=== PATIENT | female | born 1980 | race African-American/Black ===

== ENCOUNTER 2023-02-28 18:00 | Inpatient (IN) | payer OTHER ==
[~2023-02-28 18:00] MED LIST: Bupivacaine 0.25% HCL 30 ML VIAL ONE
[2023-02-28 18:18] VITALS: BMI 31.3
[2023-02-28] MEDS ORDERED: Ondansetron PF 4 MG/2 ML Vial IVP PRN (18:47)
[2023-02-28] MEDS ORDERED: Methylergonovine 0.2 MG/ML VIAL IM PRN (18:47)
[2023-02-28] MEDS ORDERED: fentaNYL 50 mcg/mL 1 mL Vial SLOW IVP PRN (18:47)
[2023-02-28] MEDS ORDERED: Tranexamic Acid 1,000 MG/10 ML VIAL IVP PRN (18:47)
[2023-02-28] MEDS ORDERED: Misoprostol 200 MCG TAB PR PRN (18:47)
[2023-02-28] MEDS ORDERED: hydrALAZINE 20 MG/ML VIAL SLOW IVP PRN (18:47)
[2023-02-28] MEDS ORDERED: Acetaminophen 500 MG TAB PO PRN (18:47)
[2023-02-28] MEDS ORDERED: Promethazine HCl 25 MG/ML VIAL IM PRN (18:47)
[2023-02-28] MEDS ORDERED: Carboprost 250 MCG/ML AMP IM PRN (18:47)
[2023-02-28] MEDS ORDERED: Oxytocin 30 units/NS 500 ML 500 ML IV SCH ×3 (19:00→19:30)
[2023-02-28 19:12] LABS: Hematocrit 36.2 % (34.9-44.5); Mean Corpuscular HGB CONC 33.1 g/dL (32.0-36.0); Mean Corpuscular Hemoglobin 29.7 pg (27.0-33.0); Mean Corpuscular Volume 89.6 fl (81.6-98.3); Mean Platelet Volume 11.6 fl (7.4-10.4); Platelet Count 248 10x3/uL (150-450); RBC Distribution Width 14.3 % (11.5-14.5); Red Blood Cell (RBC) Count 4.04 10x6/uL (3.90-5.03); White Blood Cell (WBC) Count 9.5 10x3/uL (3.5-10.5)
[2023-02-28] MEDS ORDERED: Lidocaine 1% (PF) 30 ML VIAL SC PRN (19:22)
[2023-02-28] MEDS ORDERED: Misoprostol 100 MCG TAB PO SCH ×2 (19:30→23:15)
[2023-02-28 19:51] LABS: HBSAg Index 0.16 S/CO (0-0.99); Hep B Surf Ag - L&D Non-Reactive S/CO (NonReactive)
[2023-02-28 19:52] LABS: Syphilis Antibody Nonreactive (Nonreactive); Syphilis Antibody Index 0.06 S/CO (<1.00 Non-Reactive)
[2023-02-28] MEDS ORDERED: fentaNYL/Ropivacaine Epidural 100 ML ONE (23:16)
[2023-03-01] MEDS ORDERED: ePHEDrine Sulfate 50 MG/10 ML VIAL SLOW IVP PRN (02:43)
[2023-03-01] MEDS ORDERED: Naloxone HCl 0.4 mg/ml Vial IVP PRN ×2 (02:43)
[2023-03-01] MEDS ORDERED: Ondansetron PF 4 MG/2 ML Vial IVP PRN (02:43)
[2023-03-01] MEDS ORDERED: Lactated Ringer's 500 ML IV PRN (02:43)
[2023-03-01] MEDS ORDERED: Acetaminophen 325 MG TAB PO PRN (02:43)
[2023-03-01] MEDS ORDERED: diphenhydrAMINE 50 MG/ML VIAL IVP PRN (02:43)
[2023-03-01] MEDS ORDERED: Promethazine HCl 25 MG/ML VIAL IM PRN (02:43)
[2023-03-01] MEDS ORDERED: Moisturizing Cream (Eucerin) 113 GM JAR TOP PRN (02:43)
[2023-03-01] MEDS ORDERED: Communication Order-Pharmacy FS SCH (02:45)
[2023-03-01] MEDS ORDERED: fentaNYL 2 mcg/Ropivacaine 0.2% Epidural 100 ML CADD EPIDURAL SCH (02:45)
[2023-03-01] MEDS ORDERED: Boostrix 0.5 ML (Tdap) VIAL (>/=7 yrs of age) IM ONE (05:26)
[2023-03-01] MEDS ORDERED: hydrALAZINE 20 MG/ML VIAL SLOW IVP PRN (05:26)
[2023-03-01] MEDS ORDERED: Bisacodyl 10 MG SUPP PR PRN (05:26)
[2023-03-01] MEDS ORDERED: Milk Of Magnesia 30 ML UDCUP PO PRN (05:26)
[2023-03-01] MEDS ORDERED: Lanolin Ointment 7 GM TUBE TOP PRN (05:26)
[2023-03-01] MEDS ORDERED: Preparation H Ointment 28 GM TUBE PR PRN (05:26)
[2023-03-01] MEDS: Ibuprofen 800 MG TAB PO SCH ×3 (08:09→22:44)
[2023-03-01] MEDS: Ferrous Sulfate 325 MG TAB PO SCH ×2 (08:10→19:16)
[2023-03-01] MEDS: Docusate 100 MG CAP PO SCH ×2 (08:10→22:44)
[2023-03-01] MEDS: Prenatal Vitamin 1 TAB PO SCH (08:10)
[2023-03-01] MEDS ORDERED: HYDROcodone/Acetaminophen 5/325 mg Tablet PO SCH (20:45)
[2023-03-02] MEDS: Ibuprofen 800 MG TAB PO SCH (05:34)
[2023-03-02] MEDS: Prenatal Vitamin 1 TAB PO SCH (08:59)
[2023-03-02] MEDS: Ferrous Sulfate 325 MG TAB PO SCH (08:59)
[2023-03-02] MEDS: Docusate 100 MG CAP PO SCH (08:59)
[2023-03-02 11:20] VITALS: BP 117/66; TEMP 98.3
== END 2023-03-02 13:28 | disposition home or self-care (01) | DRG 807 ==
LOC: CSHLD 18:05 → CSHPP 03-01 06:21
PROVIDERS: ADMIT Obstetrics & Gynecology; ATTEND Obstetrics & Gynecology
PROC: 3E0P7VZ Introduction of Hormone into Female Reproductive, Via Natural or Artificial Opening (ICD-10-PCS; principal; 2023-02-28)
PROC: 10E0XZZ Delivery of Products of Conception, External Approach (ICD-10-PCS; 2023-03-01)
DX: O36.5930 Maternal care for other known or suspected poor fetal growth, third trimester, not applicable or unspecified (principal); Z37.0 Single live birth; Z3A.38 38 weeks gestation of pregnancy; O09.43 Supervision of pregnancy with grand multiparity, third trimester; O24.420 Gestational diabetes mellitus in childbirth, diet controlled; O99.02 Anemia complicating childbirth; D50.9 Iron deficiency anemia, unspecified; Z82.49 Family history of ischemic heart disease and other diseases of the circulatory system; Z83.3 Family history of diabetes mellitus
CPT/HCPCS: 36415; 36416; 51702; 85027; 86780; 86850; 86900; 86901; 87340; J2590; S0020